=== PATIENT | male | born 1950 | race Caucasian/White ===

== ENCOUNTER → 2017-07-12 | Outpatient (CLI) | payer OTHER ==
[~2017-07-12] MED LIST: ALFU1TAB2 PO; CYAN500T PO; OLME1TAB11 PO
--- NOTE | 2017-07-12 12:47 | DIAGNOSTIC IMAGING REPORT ---
(RENAL)RETROPERITON COMP HISTORY: 66 years-old Male N20.0 [id number] Renal mass follow-up study to assess nephrolithiasis. COMPARISON: [facility] 10/07/2016, CT 08/24/2016 TECHNIQUE: Multiple real-time sonographic images of the kidneys and urinary bladder were obtained assessing grayscale appearance and color flow. FINDINGS: Right kidney measures 6.0 x 4.6 x 6.4 cm and is unremarkable with preserved cortical medullary differentiation. No hydronephrosis or renal calculi. Urinary bladder is unremarkable with bilateral ureteral jets documented. 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 Moderate atrophy of the left kidney is again seen which is diffusely echogenic with severe cortical thinning overall measuring 10.2 x 5.8 x 5.2 cm. Multiple calculi on the left are seen, largest of which measures 1.4 cm within the inferior pole. Exophytic hypoechoic lesion of the interpolar lateral aspect left kidney is again seen, 2.0 x 2.6 x 2.2 cm, unchanged from comparison suggesting a complex cyst without internal vascularity documented IMPRESSION: 1. Redemonstration of left-sided renal calculi, largest of which is a 1.4 cm calculus of the inferior pole. No hydronephrosis or right-sided renal calculi identified. 2. Moderate left renal atrophy with diffuse cortical thinning and increased echogenicity again seen. 3. Complex exophytic hypoechoic lesion of the interpolar left kidney without internal vascularity documented is again seen suggesting complex cyst. Attention at follow-up recommended. The above report was generated using voice recognition software. It may contain grammatical, syntax or spelling errors. Electronically signed by: Yunier Santos M.D. 07/12/2017 12:46 PM Dictated Date/Time: 07/12/2017 12:41 PM
--- NOTE | 2017-07-12 13:16 | DIAGNOSTIC IMAGING REPORT ---
[facility] HISTORY: RENAL MASS, NEPHROLITHIASIS, BPH W/OBSTRUCTION/L UTI SYMPTOMS COMPARISON: [facility] 10/05/2016. FINDINGS: The bowel gas pattern is unremarkable. There are no dilated loops of small bowel to suggest an obstruction. No right renal calculi. No ureteral calculi. Calcifications in the deep pelvis likely represent phleboliths. These remain unchanged. The renal shadows are mostly vascular by overlying bowel gas resulting in suboptimal evaluation. Probable 1.2 cm stone within the lower pole the left kidney. No pneumoperitoneum or pneumatosis. IMPRESSION: Probable 1.2 cm left renal stone which is not significantly change. No ureteral calculi. Electronically signed by: Mazin Silvestre M.D. 07/12/2017 1:14 PM Dictated Date/Time: 07/12/2017 1:12 PM
[2017-07-12 13:48] LABS: BLOOD UREA NITROGEN 26 mg/dl (7-18); BUN/CREATININE RATIO 21.7 (10-20)
== END | disposition home or self-care (01) ==
LOC: C.ULTR 11:30
PROVIDERS: ATTEND Urology
DX: N20.0 Calculus of kidney (principal); N28.89 Other specified disorders of kidney and ureter

== ENCOUNTER → 2017-08-05 | Outpatient (CLI) | payer OTHER | END | disposition home or self-care (01) | LOC: C.RDSM 10:51 | PROVIDERS: ATTEND Physical Medicine & Rehabilitation Sports Medicine | DX: M54.5 Low back pain (principal); M25.571 Pain in right ankle and joints of right foot; M25.572 Pain in left ankle and joints of left foot ==

== ENCOUNTER → 2017-08-15 | Outpatient (CLI) | payer OTHER ==
--- NOTE | 2017-08-15 13:15 | DIAGNOSTIC IMAGING REPORT ---
LUMBAR SPINE W/O CONTRAST HISTORY: Pain. Neuropathy. LUMBAGO TECHNIQUE: Multiplanar multisequence MRI of the lumbar spine was performed without the use of contrast. COMPARISON: None. FINDINGS: For the purpose of the report the L5-S1 disc space will be located on axial image . Unremarkable signal characteristics of the vertebral bodies. Moderate degenerative disc change throughout. L1-L2: No significant central canal or neural foraminal narrowing. L2-L3: Mild broad-based is bulge. Minimal narrowing right neuroforamina. Minimal impact anterior thecal sac. L3-L4: Mild broad-based disc herniation. Mild impact anterior thecal sac. Moderate narrowing of the neuroforamina bilaterally secondary to hyperplastic change of the posterior elements. L4-L5: Mild broad-based disc herniation. Mild impact anterior thecal sac. Mild narrowing neuroforamina bilaterally L5-S1: Minimal broad-based disc bulge. Mild osteophytic narrowing of the neuroforamina bilaterally. Moderate degenerative change posterior facets. IMPRESSION: 1. Moderate to rather significant degenerative disc change at the entire lumbar region. 2. Multilevel broad-based bulging disc components with a mild broad-based disc herniations at L3-L4 and L4-L5. 3. Moderate multifactorial narrowing of the neuroforamina bilaterally at multiple levels. 4. No evidence for major disc herniation or high degree of degenerative neural foraminal stenosis. The above report was generated using voice recognition software. It may contain grammatical, syntax or spelling errors. Electronically signed by: Gagandeep Curran M.D. 08/15/2017 1:14 PM Dictated Date/Time: 08/15/2017 1:10 PM
== END | disposition home or self-care (01) ==
LOC: C.MRIBC 12:01
PROVIDERS: ATTEND Physical Medicine & Rehabilitation Sports Medicine
DX: M51.36 Other intervertebral disc degeneration, lumbar region (principal); M48.061 Spinal stenosis, lumbar region without neurogenic claudication; M48.07 Spinal stenosis, lumbosacral region

== ENCOUNTER → 2017-10-21 | Outpatient (CLI) | payer OTHER ==
[~2017-10-21] MED LIST changes: +BNC/20 PO; -OLME1TAB11 PO
--- NOTE | 2017-10-21 11:32 | DIAGNOSTIC IMAGING REPORT ---
R LOWER EXT JOINT WITHOUT CLINICAL HISTORY: 67 years-old Male with R ANKLE PAIN,ROCÍO TARSAL TUNNEL SYNDROME. Acute right ankle pain with clinical diagnosis of tarsal tunnel syndrome COMPARISON: Right ankle radiographs 08/05/2017. TECHNIQUE: Multiplanar, multi sequence MRI of the right ankle was performed without contrast. FINDINGS: LATERAL LIGAMENT COMPLEX: The anterior talofibular ligament is mildly attenuated suggesting chronic sprain. The calcaneofibular ligament and posterior talofibular ligaments are intact. SYNDESMOTIC LIGAMENTS: The anterior-inferior tibiofibular ligament, interosseous membrane and posterior-inferior tibiofibular ligaments are intact. DELTOID LIGAMENT COMPLEX: The superficial and deep components of the deltoid ligament are intact. ANTERIOR TENDONS: The tibialis anterior, extensor hallucis longus and extensor digitorum longus tendons are normal in position, morphology and signal. LATERAL TENDONS: The peroneus longus and brevis tendons are intact demonstrating mild tenosynovitis along the inframalleolar coarse of the tendons. Mild tendinosis of the peroneus longus. MEDIAL TENDONS: The posterior tibialis, flexor digitorum longus and flexor hallucis longus tendons are intact. There is mild tenosynovitis of the tibialis posterior and flexor digitorum longus tendons. PLANTAR FASCIA: There is mild thickening of both the medial and lateral cords of the plantar fascia with moderate associated plantar enthesophyte. Minimal edema is noted adjacent to the medial cord plantar fascia as seen on image 13 series 9. No plantar fascial tear identified. No evidence of plantar fascial nodules. ACHILLES TENDON: The Achilles tendon is normal in position, morphology and signal. No associated bursitis. SINUS TARSI: There is mild edema noted within the sinus Tarsi with infiltration of the sinus tarsi fat. The interosseous and cervical ligaments are normal. The navicular-calcaneal (spring) ligament is without acute abnormality. TARSAL TUNNEL: There are no obstructing lesions within the tarsal tunnel. No accessory musculature identified. BONE MARROW: No acute fracture identified. No definite bone marrow contusion. T2 hyperintense lobulated structure involves the medullary canal of the proximal metaphyseal first metatarsal measuring up to 2.0 x 0.9 x 0.9 cm nicely seen on image 15 series 9 and image 25 series 8 demonstrating low signal on the T1-weighted images suggesting subcortical cyst or intraosseous ganglion. Pes planus deformity. SOFT TISSUES: Trace fluid noted within the posterior recess and subtalar joint. IMPRESSION: 1. No obstructing lesion or process identified within the tarsal tunnel. 2. Mild tenosynovitis of the tibialis posterior, flexor digitorum longus, peroneus longus and brevis tendons without tendon tear identified. 3. Pes planus deformity with mild acute on chronic plantar fasciitis. 4. Subcortical cyst or intraosseous ganglion involves the proximal diaphyseal first metatarsal. 5. 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 Correlate with clinical presentation and patient symptoms. The above report was generated using voice recognition software. It may contain grammatical, syntax or spelling errors. Electronically signed by: Yunier Santos M.D. 10/21/2017 11:31 AM Dictated Date/Time: 10/21/2017 10:49 AM
== END | disposition home or self-care (01) ==
LOC: C.MRI 09:25
PROVIDERS: ATTEND Physical Medicine & Rehabilitation Sports Medicine
DX: G57.53 Tarsal tunnel syndrome, bilateral lower limbs (principal); M25.571 Pain in right ankle and joints of right foot; M21.41 Flat foot [pes planus] (acquired), right foot; R93.8 Abnormal findings on diagnostic imaging of other specified body structures

== ENCOUNTER → 2018-06-06 | Outpatient (CLI) | payer OTHER | END | disposition home or self-care (01) | LOC: C.RDSM 09:53 | PROVIDERS: ATTEND Physical Medicine & Rehabilitation Sports Medicine | DX: M25.561 Pain in right knee (principal); M25.562 Pain in left knee ==